=== PATIENT | male | born 1990 | race Caucasian/White ===

== ENCOUNTER → 2017-05-07 | Outpatient (CLI) | payer BC ==
--- NOTE | 2017-05-07 11:54 | REP ---
CT study of the chest without IV contrast: History: Solitary pulmonary nodule. Comparison chest CT study August 24, 2016. CT findings: There has been no change in either of the two noncalcified pulmonary nodule seen on the August 24, 2016 prior study in the intervening 8-9 months. The nodule in the left lower lobe is seen on today's exam page 64 of 119 in series 201. This measures 6.5 mm. The right lower lobe nodule is visible on today's exam on page 66 of that series and measures 6.2 mm by my measurement. These do not appear to have changed in the interval. No new nodule is seen. No pleural effusion or infiltrate is seen. No hilar or mediastinal mass or adenopathy is observed. No adrenal lesion is seen. The visualized upper abdominal structures are unremarkable. No bony abnormality is appreciated. Impression: Stable CT findings. There is a noncalcified pulmonary nodule in the left lower lobe and another in the right lower lobe. These measure 6.5 and 6.2 mm respectively. Signed by Brandon Beckford MD 05/07/2017 12:31 P
== END ==
LOC: M RAD 08:01
PROVIDERS: ATTEND Physician Assistant
DX: R91.1 Solitary pulmonary nodule (principal)

== ENCOUNTER → 2017-12-07 | Outpatient (CLI) | payer BC ==
[~2017-12-07] MED LIST: ISOVUE-370 76% 100ML VIAL (Q9967) As Ordered
== END ==
LOC: M RAD 07:40
DX: R91.1 Solitary pulmonary nodule (principal)
CPT/HCPCS: Q9967

== ENCOUNTER → 2018-12-14 | Outpatient (CLI) | payer BC ==
[~2018-12-14] MED LIST changes: -ISOVUE-370 76% 100ML VIAL (Q9967) As Ordered; +ISOVUE-370 76% 100ML VIAL (Q9967) As Ordered ONE
--- NOTE | 2018-12-15 03:26 | REP ---
Clinical: Follow-up pulmonary nodule. Technique: Axial contrast enhanced images from the lung bases to the pubic symphysis using 100 ml Isovue 370 intravenous contrast material with coronal and sagittal re-formations. Automated dose lowering technique and adjustments according to patient size were utilized during acquisition. Comparison: 12/07/2017, 08/24/2016. Findings: The bilateral lung [place] are relatively well aerated, symmetric and essentially clear. 6 mm noncalcified solitary nodule in the right lower lobe (image 56) and left lower lobe (image 59) remain stable through 2016. No new consolidation, significant nodule or mass lesion appreciated. No significant adenopathy. Tracheobronchial tree is patent. No effusion. No pneumothorax. The mediastinum demonstrates normal thoracic aorta, pulmonary vasculature, and heart/pericardium. Surrounding musculoskeletal structures are intact. Upper abdomen demonstrates normal bilateral adrenal glands. Impression: Stable solitary right lower lobe and left lower lobe noncalcified nodules. No new acute mediastinal or pleuroparenchymal process. Electronically Signed by Jaret Jensen MD 12/15/2018 03:17 A
== END ==
LOC: M RAD 16:42
PROVIDERS: ATTEND Physician Assistant
DX: R91.8 Other nonspecific abnormal finding of lung field (principal)
CPT/HCPCS: 71260; Q9967

== ENCOUNTER → 2019-01-20 | Outpatient (CLI) | payer BC ==
--- NOTE | 2019-01-20 18:27 | REP ---
Clinical: Sciatica . Technique: AP, lateral, bilateral oblique, and coned-down views. Findings: L5 spondylolysis with grade 1 anterolisthesis of approximately 6 mm is appreciated. Associated endplate sclerosis and minimal disc space narrowing at L5-S1 is appreciated along with mild endplate sclerosis at L4-5. Remainder examination appears essentially normal for age. Impression: Spondylolysis and spondylolisthesis at the L5-S1 level with associated degenerative changes. Electronically Signed by Jaret Jensen MD 01/20/2019 06:18 P
== END ==
LOC: M WUC 18:00
PROVIDERS: ATTEND Physician Assistant
DX: M43.06 Spondylolysis, lumbar region (principal); M43.17 Spondylolisthesis, lumbosacral region

== ENCOUNTER → 2021-04-11 | Outpatient (CLI) | payer OTHER ==
[~2021-04-11] MED LIST changes: +ADDE20CA3 PO; -ISOVUE-370 76% 100ML VIAL (Q9967) As Ordered ONE
--- NOTE | 2021-04-11 10:08 | REP ---
INDICATION: PAIN. COMPARISON: None. TECHNIQUE: AP, lateral, bilateral oblique views of the right foot FINDINGS: Osseous structures, joint spaces, and surrounding soft tissues are essentially age-appropriate and within normal limits. No evidence for acute or healed injury. No subcutaneous emphysema or foreign body. IMPRESSION: Age-appropriate right foot radiographs. No obvious abnormality by radiographic evaluation. <Electronically signed by Jaret Jensen > 04/11/21 [id number]
== END ==
LOC: M SOG 09:24
PROVIDERS: ATTEND Orthopaedic Surgery Adult Reconstructive Orthopaedic Surgery
DX: M79.671 Pain in right foot (principal)

== ENCOUNTER → 2022-08-08 | Outpatient (CLI) | payer OTHER ==
[2022-08-08 17:51] LABS: BASO % 0.6 % (0.0-1.0); EOS # 0.1 10^3/uL (0.0-0.5); HEMATOCRIT 45.3 % (42.0-52.0); LYMPH % 20.1 % (24.0-44.0); MEAN CORPUSCULAR HEMOGLOBIN 29.2 pg (27.0-33.0); MEAN CORPUSCULAR HGB CONC 33.1 g/dl (32.0-36.5); MEAN CORPUSCULAR VOLUME 88.1 fl (80.0-96.0); MONO # 0.5 10^3/uL (0.0-0.8); MONO % 9.6 % (2.0-8.0); NEUTROPHILS # 3.5 10^3/uL (1.5-8.5); NEUTROPHILS % 68.7 % (36.0-66.0); PLATELET COUNT, AUTOMATED 206 10^3/uL (150-450); RED BLOOD COUNT 5.14 10^6/uL (4.30-6.10)
[2022-08-08 18:16] LABS: ERYTHROCYTE SEDIMENTATION RATE 8 mm/hr (0-15)
[2022-08-08 18:35] LABS: ALBUMIN 4.1 GM/DL (3.2-5.2); ALT/SGPT 32 U/L (12-78); BILIRUBIN,TOTAL 0.4 MG/DL (0.2-1.0); BLOOD UREA NITROGEN 16 MG/DL (7-18); C REACTIVE PROTEIN QUANTITATIV 1.34 MG/DL (0.00-0.30); CALCIUM LEVEL 8.6 MG/DL (8.5-10.1); CARBON DIOXIDE LEVEL 28 MEQ/L (21-32); CHLORIDE LEVEL 107 MEQ/L (98-107); CREATININE FOR GFR 1.15 MG/DL (0.70-1.30); FREE T4 1.13 NG/DL (0.76-1.46); GLOMERULAR FILTRATION RATE > 60.0 (>60); GLUCOSE, FASTING 88 MG/DL (70-100); POTASSIUM SERUM 3.8 MEQ/L (3.5-5.1); SODIUM LEVEL 139 MEQ/L (136-145); TOTAL PROTEIN 7.3 GM/DL (6.4-8.2)
== END ==
LOC: M LAB 16:55
PROVIDERS: ATTEND Physician Assistant
DX: M79.7 Fibromyalgia (principal)

== ENCOUNTER → 2022-08-08 | Outpatient (REF) | payer OTHER | LOC: M LAB REF 18:52 | PROVIDERS: ATTEND Physician Assistant | DX: R53.1 Weakness (principal) ==

== ENCOUNTER 2022-08-20 07:44 | Outpatient (RCR) | payer OTHER | END 2022-08-24 | LOC: M OT 07:44 | PROVIDERS: ATTEND Psychiatry & Neurology Neurology | DX: R53.1 Weakness (principal) ==

== ENCOUNTER 2022-08-31 08:46 | Outpatient (RCR) | payer OTHER | END 2022-09-23 | LOC: M OT 08:46 | PROVIDERS: ATTEND Psychiatry & Neurology Neurology | DX: M60.9 Myositis, unspecified (principal) ==

== ENCOUNTER 2022-10-01 08:06 | Outpatient (RCR) | payer OTHER | END 2022-10-24 | LOC: M OT 08:06 | PROVIDERS: ATTEND Psychiatry & Neurology Neurology | DX: M60.9 Myositis, unspecified (principal) ==